=== PATIENT | male | born 1985 | race Caucasian/White ===

== ENCOUNTER → 2022-03-05 15:33 | Outpatient (BNVA) | payer BC, SELFPAY | PROVIDERS: Visit Provider Family Medicine | DX: M25.561 Pain in right knee (principal); M25.562 Pain in left knee | CPT/HCPCS: 73562 ==

== ENCOUNTER 2022-03-29 08:56 | Outpatient (CLI) | payer BC, SELFPAY ==
--- NOTE | 2022-03-29 09:22 | MR_ITS ---
WS: [id number] MRI LEFT KNEE HISTORY: FOCAL CARTILAGE DEFECTS COMPARISON: Radiograph 03/05/2022 Anterior cruciate ligament: Intact. Posterior cruciate ligament: Intact. Medial collateral ligament: Intact. Posterior lateral corner structures: Intact. Medial menisci: No tears are identified. There is mild thickening of fraying along the superior artic ular surface of the posterior horn towards the meniscal root. Lateral meniscus: Intact. Normal signal, size and shape. Extensor mechanism: Distal quadriceps tendon and patellar tendons are intact. Fluid and soft tissue: No significant joint effusion. No Franco's cyst. Osseous and articular structures: Patellofemoral compartment: Moderate chondromalacia. Moderate narrowing of the patellofemoral joint s pace. Small amount of subchondral cystic change at the patellar eminence. No displacement. There is a small amount of marrow edema involving the anterior femoral condyle laterally. Medial compartment: Mild narrowing of the medial compartment. There is mild diffuse loss of cartilage and thinning with no marrow edema or osteochondral defect. Lateral compartment: Moderate to severe narrowing of the lateral compartment with complete loss of ca rtilage. Moderate amount of marrow edema in the lateral femoral condyle and lateral tibial plateau. N o osteochondral defect. MR/MR knee LT wo con* [id number] IMPRESSION: 1. Severe lateral compartment osteoarthritis with loss of the normal joint spa ce, complete loss of cartilage with marrow edema in the femoral condyle and tib ial plateau. 2. Superficial fraying involving the posterior horn medial meniscus without a definite tear. 3. Moderate chondromalacia patellofemoral compartment with joint space narrowi ng. 4. Mild medial compartment arthritic changes.
--- NOTE | 2022-03-29 09:22 | MR_ITS ---
WS: [id number] MRI RIGHT KNEE HISTORY: FOCAL CARTILAGE DEFECTS COMPARISON: Radiographs 03/05/2022 Anterior cruciate ligament: Intact. Posterior cruciate ligament: Intact. Medial collateral ligament: Small amount of fluid increased T2 signal along the MCL. Partial MCL tear . Posterior lateral corner structures: Intact. Medial menisci: Intact. Normal signal, size and shape. Lateral meniscus: Focal tear in the anterior horn extends to the superior articular surface and also extends to the inferior articular surface. Extensor mechanism: Distal quadriceps tendon and patellar tendons are intact. Fluid and soft tissue: No joint effusion. No Franco's cyst. Osseous and articular structures: Patellofemoral compartment: Superficial defect within the cartilage near the patellar eminence. Other maya cartilage is intact. Medial compartment: Normal. Lateral compartment: Superficial injury to the weightbearing surface lateral tibial plateau. There is also focal marrow edema measuring 3.9 x 3.1 cm in the lateral femoral condyle. No fracture. MR/MR knee RT wo con* [id number] IMPRESSION: 1. Marrow edema in the lateral femoral condyle, no fracture. 2. Focal superficial cartilaginous defect midline lateral tibial plateau. 3. Tear anterior horn lateral meniscus. Tear extends to the superior and proba dina inferior articular surfaces. 4. Mild chondromalacia at the patellar eminence. 5. Partial tear MCL, above the joint line.
== END 2022-03-29 08:57 | disposition home or self-care (01) ==
LOC: RAD 08:57
PROVIDERS: Visit Provider Family Medicine
DX: R60.0 Localized edema (principal); S83.411A Sprain of medial collateral ligament of right knee, initial encounter; M22.41 Chondromalacia patellae, right knee; S83.281A Other tear of lateral meniscus, current injury, right knee, initial encounter; M17.12 Unilateral primary osteoarthritis, left knee; M22.42 Chondromalacia patellae, left knee; X58.XXXA Exposure to other specified factors, initial encounter
CPT/HCPCS: 73721

== ENCOUNTER → 2024-12-02 13:13 | Outpatient (BNVA) | payer BC, SELFPAY | PROVIDERS: PCP Surgery; Visit Provider Nurse Practitioner Family | DX: M25.562 Pain in left knee (principal); M25.561 Pain in right knee | CPT/HCPCS: 73562 ==